=== PATIENT | female | born 1995 | race Caucasian/White ===

== ENCOUNTER 2017-08-20 05:30 | Day surgery (SDC) | payer MEDICAID ==
[2017-08-20] VITALS (8 sets, daily range): BP systolic 100–144; BP diastolic 61–81
[~2017-08-20] VITALS: Ht 157.5 cm; Wt 58.2 kg
[~2017-08-20 05:30] MED LIST: IBUP-1984 PO; L-NO1TBD PO; LEVE100S PO; QUET-1 PO; QUET50TA15 PO; famotidine/PF 10 mg/ml inj IV ONE; ringers solution, lacted 1,000 ML IV SCH
[2017-08-20] MEDS ORDERED: diazepam 5mg tablet PO ONE (06:10)
[2017-08-20] MEDS ORDERED: MIDAZolam 5mg/ml 2ml vial ONE (07:16)
[2017-08-20] MEDS ORDERED: ketamine 50 mg/ml 10ml vial IV ONE (07:23)
[2017-08-20] MEDS ORDERED: fentaNYL/PF 50MCG/1 ML 2ML syringe ONE (08:05)
[2017-08-20] MEDS ORDERED: rocuronium 10mg/ml inj IV ONE (08:08)
[2017-08-20] MEDS ORDERED: 0.9 % SODIUM CHLORIDE 10 ML VIAL ONE (08:08)
[2017-08-20] MEDS ORDERED: ceFAZolin 1000mg inj ONE ×2 (08:08→10:06)
[2017-08-20] MEDS ORDERED: gelatin sponge, absorbable (Gelfoam 100) sponge TP ONE (08:38)
[2017-08-20] MEDS ORDERED: ringers solution, lacted 1,000 ML IV SCH (08:58)
[2017-08-20] MEDS ORDERED: fentaNYL/PF 50MCG/1 ML 2ML syringe IV PRN ×2 (09:00)
[2017-08-20] MEDS ORDERED: meperidine/PF 25mg/ml syringe IV ONE (09:00)
[2017-08-20] MEDS ORDERED: ondansetron/PF 4mg/2ml inj IV PRN (09:00)
[2017-08-20] MEDS ORDERED: morphine 2 MG/ML inj. syringe IV PRN ×2 (09:00)
[2017-08-20] MEDS ORDERED: proCHLORperazine 10 MG/2 ml inj IV PRN (09:00)
[2017-08-20] MEDS ORDERED: ondansetron/PF 4mg/2ml inj ONE (09:44)
[2017-08-20] MEDS ORDERED: dexamethasone sod phosphate 4mg/ml inj. ONE (09:44)
== END 2017-08-20 12:11 | disposition home or self-care (01) ==
LOC: PAS 05:30
PROVIDERS: ATTEND Dentist
DX: K02.9 Dental caries, unspecified (principal); G40.909 Epilepsy, unspecified, not intractable, without status epilepticus
CPT/HCPCS: 41899; J0690; J1100; J2250; J2405; J3010; J3490; J7120; A7000